=== PATIENT | male | born 1945 ===

== ENCOUNTER 2017-12-25 11:46 | Emergency (ER) | payer BC ==
[2017-12-25 11:58] VITALS: BMI 32.1
[2017-12-25] MEDS ORDERED: Sodium Chloride 0.9% 1,000 ML IV STA (12:20)
--- NOTE | 2017-12-25 12:26 | ED PDOC ---
HPI: Abdomen <Ash Escobar Y - Last Filed: 12/25/17 19:09> History Per: Patient History/Exam Limitations: language barrier Onset/Duration Of Symptoms: Hrs Current Symptoms Are (Timing): Still Present Severity: Moderate Pain Scale Rating Of: 6 Location Of Pain/Discomfort: RUQ Quality Of Discomfort: Sharp, Pressure Associated Symptoms: Nausea. denies: Fever, Chills, Vomiting Alleviating Factors: None Last Bowel Movement: Today <Italia Alexander - Last Filed: 12/25/17 19:26> Time Seen by Provider: 12/25/17 12:03 Chief Complaint (Nursing): Abdominal Pain Additional Complaint(s): CC: abdominal pain HPI: 72 YO Male with PMHx of BPH presents to [facility] ED for abdominal pain. Pain is located in the RUQ, started around 10AM today and describes as sharp/ pressure type of pain. Pt has tried Tums for the pain with no relief. Of note, pain is associated with nausea, no emesis thus far and no radiation of the pain. Denies chest pain, diaphoresis, palpitations, dyspnea, d/c, fever and chills. Last BM this AM, normal per pt. Voyce used for translation, [id number] PMD: Dr. Louis PMHx: BPH SurgHx: denies SHx: Social ETOH, denies smoking and illicit drug use FHx: CA in mother Allergies: NKDA Meds: tamsulosin and asa (CatherineItalia) Past Medical History <Ash Escobar Y - Last Filed: 12/25/17 19:09> - Medical History PMH: Benign Prostatic Hyperplasia - Surgical History Surgical History: No Surg Hx - Family History Family History: States: Other - Social History Current smoker - smoking cessation education provided: No Alcohol: Social Drugs: Denies <Italia Alexander - Last Filed: 12/25/17 19:26> Vital Signs: Last Vital Signs Temp 98.7 F 12/25/17 11:57 Pulse 61 12/25/17 16:04 Resp 16 12/25/17 16:04 BP 112/72 12/25/17 16:04 Pulse Ox 99 12/25/17 18:57 - Allergies Allergies/Adverse Reactions: Allergies Allergy/AdvReac Type Severity Reaction Status Date / Time No Known Allergies Allergy Verified 12/25/17 12:05 Review of Systems Constitutional: Negative for: Fever, Chills Cardiovascular: Negative for: Chest Pain, Palpitations, Edema Respiratory: Negative for: Cough, Shortness of Breath Gastrointestinal: Positive for: Nausea, Abdominal Pain. Negative for: Vomiting , Diarrhea, Constipation Genitourinary Male: Negative for: Dysuria, Frequency, Hematuria <Italia Alexander - Last Filed: 12/25/17 19:26> Physical Exam - Physical Exam Appears: Positive for: No Acute Distress Skin: Positive for: Normal Color. Negative for: Diaphoresis Cardiovascular/Chest: Positive for: Regular Rate, Rhythm. Negative for: Murmur Respiratory: Positive for: Normal Breath Sounds. Negative for: Crackles, Wheezing Gastrointestinal/Abdominal: Positive for: Bowel Sounds, Soft, Tenderness (to palpation of the RUQ, +Avalos's sign ), Distended (obese ). Negative for: Guarding, Rebound Back: Positive for: Normal Inspection. Negative for: L CVA Tenderness, R CVA Tenderness Extremity: Positive for: Normal ROM. Negative for: Tenderness, Pedal Edema Neurologic/Psych: Positive for: Alert, Oriented <Italia Alexander - Last Filed: 12/25/17 19:26> - Laboratory Results Result Diagrams: 12/25/17 13:20 12/25/17 14:06 <Ash Escobar Y - Last Filed: 12/25/17 19:09> - Laboratory Results Result Diagrams: 12/25/17 13:20 12/25/17 14:06 - ECG O2 Sat by Pulse Oximetry: 99 <Sa Catherineima - Last Filed: 12/25/17 19:26> - Progress ED Course And Treament: 72 YO Male with Abdominal pain, RUQ. VS stable. -cbc, cmp, lipase -UA -abdominal u/s -IVF, zofran, toradol U/S of abdomen IMPRESSION: Cholelithiasis. No sonographic evidence for acute cholecystitis. Mild diffuse dilatation of the common bile duct without sonographic evidence for choledocholithiasis. 14:57--pt seen and re-evaluated Pt states that he feels better, pain is mild and nausea has resolved. Blood work pending UA neg U/S findings reviewed with pt, sig for cholelithiasis 18:13-- pt remains without any more abdominal pain or nausea Pending CT scan findings Pt endorsed to Dr. Fung (Italia Alexander) Medical Decision Making <LuzConstantinozainab Y - Last Filed: 12/25/17 19:09> <Italia Alexander - Last Filed: 12/25/17 19:26> Medical Decision Makinyo male, comes to ER for evaluation of abdominal pain. US Galbladder shows cholelithiasis but no cholecystitis noted. Patient currently waiting CT Abdomen/Pelvis to rule out appendicitis. 19:09 Patient signed out to Dr. Fung pending CT report. Scribe Attestation: Documented by Faiza Purcell acting as a scribe for Ash Escobar MD Provider Scribe Attestation: All medical record entries made by the Scribe were at my direction and personally dictated by me. I have reviewed the chart and agree that the record accurately reflects my personal performance of the history, physical exam, medical decision making, and the department course for this patient. I have also personally directed, reviewed, and agree with the discharge instructions and disposition. (Ash Escobar) Disposition <Ash Escobar Y - Last Filed: 12/25/17 19:09> - Disposition Disposition: Transfer of Care Disposition Time: 19:26 <Italia Alexander - Last Filed: 12/25/17 19:26> - Clinical Impression Clinical Impression: Abdominal pain - Disposition Condition: STABLE Forms: [employer] (Khmer)
--- NOTE | 2017-12-25 13:36 | US ---
Date of service: 12/25/2017 HISTORY: RUQ pain COMPARISON: None. TECHNIQUE: Grayscale imaging was performed. FINDINGS: LIVER: Measures 15.3 cm. Normal echogenicity of the liver parenchyma. No mass. No intrahepatic bile duct dilatation. GALLBLADDER: The gallbladder is distended. There are multiple gallstones. No wall thickening or pericholecystic fluid. The sonographic Avalos's sign is negative. COMMON BILE DUCT: Measures 6.0 mm. No stones. Mild diffuse dilatation. PANCREAS: Unremarkable as visualized. No mass. No ductal dilatation. RIGHT KIDNEY: Measures 10.0cm. Normal echogenicity. No calculus, mass, or hydronephrosis. LEFT KIDNEY: Measures 10.1cm. Normal echogenicity. No calculus, mass, or hydronephrosis. SPLEEN: Normal in size and contour. No mass. AORTA: No aneurysmal dilatation. IVC: Unremarkable. OTHER FINDINGS: None. IMPRESSION: Cholelithiasis. No sonographic evidence for acute cholecystitis. Mild diffuse dilatation of the common bile duct without sonographic evidence for choledocholithiasis. Okay
[2017-12-25 13:41] LABS: BASO # 0.1 K/uL (0.0-0.2); BASO % 0.6 % (0.0-2.0); EOS # 0.3 K/uL (0.0-0.7); HEMOGLOBIN 15.6 g/dL (12.0-18.0); LYMPH # 2.2 K/uL (1.0-4.3); LYMPH % 21.1 % (20.0-40.0); MEAN CELL VOLUME 96.8 fl (80.0-94.0); MEAN CORPUSCULAR HEMOGLOBIN 33.2 pg (27.0-31.0); MEAN CORPUSCULAR HGB CONC 34.3 g/dL (33.0-37.0); MEAN PLATELET VOLUME 11.5 fl (7.2-11.7); MONO # 0.7 K/uL (0.0-0.8); MONO % 6.6 % (0.0-10.0); NEUT # 7.1 K/uL (1.8-7.0); NEUT % 68.7 % (50.0-75.0); NRBC % 0.1 % (0.0-0.0); RBC 4.7 Mil/uL (4.40-5.90); WHITE BLOOD COUNT 10.4 K/uL (4.8-10.8)
[2017-12-25 13:45] LABS: URINE BACTERIA RARE (<OCC); URINE BILIRUBIN SMALL (NEGATIVE); URINE BLOOD NEGATIVE (NEGATIVE); URINE CLARITY CLOUDY (Clear); URINE COLOR AMBER (YELLOW); URINE GLUCOSE (UA) NEG (Normal); URINE LEUKOCYTE ESTERASE NEG Leu/uL (Negative); URINE PROTEIN 100 mg/dL (NEGATIVE)
[2017-12-25 14:37] LABS: ALB/GLOB RATIO 1.3 (1.0-2.1); ALBUMIN 3.5 g/dL (3.5-5.0); ALT/SGPT 58 U/L (21-72); AST/SGOT 80 U/L (17-59); BLOOD UREA NITROGEN 19 mg/dl (9-20); CALCIUM 8.8 mg/dL (8.4-10.2); GFR NON-AFRICAN AMERICAN > 60; LIPASE 143 U/L (23-300)
[2017-12-25] MEDS ORDERED: Sodium Chloride 0.9% 50 ML IV ONE (15:57)
[2017-12-25] MEDS ORDERED: Iohexol 300 100 ML IJ ONE (15:57)
--- NOTE | 2017-12-25 19:31 | ED PDOC ---
- Laboratory Results Result Diagrams: 12/25/17 13:20 12/25/17 14:06 - ECG O2 Sat by Pulse Oximetry: 99 (RA) Pulse Ox Interpretation: Normal Medical Decision Making Medical Decision Makin:10 Patient is a 72yo male, comes to ER with complaints of abdominal pain. Patient signed out to me by Dr. Escobar pending CT studies. 19:30 CT Abdomen/Pelvis FINDINGS: Lower thorax: No acute findings. ABDOMEN: Liver: The liver is unremarkable. Gallbladder and bile ducts: The gallbladder is unremarkable. No biliary ductal dilatation. Pancreas: The pancreas is unremarkable. Spleen: The spleen is unremarkable. Adrenals: The adrenal glands are unremarkable. Kidneys and ureters: Symmetric renal enhancement without hydronephrosis. Left renal subcentimeter hypodensity is too small to characterize. Nonspecific bilateral perinephric stranding. Stomach and bowel: No evidence of bowel obstruction. No pericolonic inflammatory stranding. Appendix: Normal appendix. PELVIS: Bladder: No focal wall thickening of the urinary bladder. Reproductive: Prostatomegaly. ABDOMEN and PELVIS: Intraperitoneal space: No significant peritoneal free fluid. No free peritoneal air. Bones/joints: No acute fracture. No dislocation. Soft tissues: There is a small fat-containing umbilical hernia. Vasculature: Normal. No abdominal aortic aneurysm. Lymph nodes: Normal. No enlarged lymph nodes. IMPRESSION: 1. Normal appendix. No acute findings. 2. Prostatomegaly. 19:[address] findings and is stable for discharge home. Return precautions given. Patient has normal vitals, well appearing upon discharge. Advised him to followup with PMD. Scribe Attestation: Documented by Faiza Purcell, acting as a scribe for Ron Fung MD. Provider Scribe Attestation: All medical record entries made by the Scribe were at my direction and personally dictated by me. I have reviewed the chart and agree that the record accurately reflects my personal performance of the history, physical exam, medical decision making, and the department course for this patient. I have also personally directed, reviewed, and agree with the discharge instructions and disposition. Disposition - Clinical Impression Clinical Impression: Gallstones - POA Present On Arrival: None - Disposition Referrals: Adán Louis MD [Family Provider] - Disposition: Routine/Home Disposition Time: 19:55 Condition: STABLE Instructions: Gallstones (DC) Forms: [employer] (Norwegian) Print Language: HUNGARIAN
[2017-12-25 20:01] VITALS: BP 119/65; PULSE 56; RESP 18; TEMP 98.2
[2017-12-25 20:41] VITALS: O2SAT 99
--- NOTE | 2017-12-26 09:21 | CT ---
Date of service: 12/25/2017 PROCEDURE: CT Abdomen and Pelvis with contrast HISTORY: r/o appendicitis COMPARISON: Noncontrast abdomen and pelvis CT 07/04/2010. TECHNIQUE: Following the intravenous administration of iodinated contrast material, a CT examination of the abdomen and pelvis performed from the domes of the diaphragms to the symphysis pubis with reformatted datasets provided in axial, sagittal and coronal planes. Oral contrast was not administered as per referring physician request. Coronal and sagittal reformats were generated. Contrast dose: Omnipaque 300, 95 cc Radiation dose: Total exam DLP = 726.26 mGy-cm. This CT exam was performed using one or more of the following dose reduction techniques: Automated exposure control, adjustment of the mA and/or kV according to patient size, and/or use of iterative reconstruction technique. FINDINGS: LOWER THORAX: Small hiatal hernia. Lung base sections otherwise unremarkable. LIVER: Unremarkable. No gross lesion or ductal dilatation. GALLBLADDER AND BILE DUCTS: Unremarkable. PANCREAS: Unremarkable. No gross lesion or ductal dilatation. SPLEEN: Unremarkable. ADRENALS: Unremarkable. No mass. KIDNEYS AND URETERS: There is a tiny lucency at the lower pole right kidney too small to characterize. . No hydronephrosis. No solid mass. VASCULATURE: Unremarkable. No aortic aneurysm. BOWEL: The stomach is collapsed and not well evaluated. Evaluation of the gastrointestinal tract is limited due to the lack of oral contrast administration. No bowel obstruction, pericolic or perienteric reaction identified. APPENDIX: Normal appendix. PERITONEUM: Unremarkable. No free fluid. No free air. LYMPH NODES: Unremarkable. No enlarged lymph nodes. BLADDER: Unremarkable. REPRODUCTIVE: Enlarged prostate gland reiterated. BONES: No acute fracture. OTHER FINDINGS: None. IMPRESSION: Nonacute abdomen pelvis CT including appendix. Tiny lucency lower pole right kidney too small to characterize. Enlarged prostate gland.
== END 2017-12-25 20:01 | disposition home or self-care (01) ==
LOC: H.ER 11:46
DX: K80.20 Calculus of gallbladder without cholecystitis without obstruction (principal); N40.0 Benign prostatic hyperplasia without lower urinary tract symptoms; Z79.82 Long term (current) use of aspirin
CPT/HCPCS: 74177; 76700; 80053; 81003; 83690; 85025; 96361; 96374; 96375; 99284; J1885; J2405; J7030; Q9967